=== PATIENT | female | born 1990 | race Two or more races ===

== ENCOUNTER 2019-03-13 13:52 | Emergency (ER) | payer MEDICAID ==
[~2019-03-13] VITALS: Ht 160 cm; Wt 109.8 kg
[2019-03-13 15:58] VITALS: BP 144/87
== END 2019-03-13 16:59 | disposition home or self-care (01) ==
LOC: ER 13:52
DX: R51 Headache (principal); E23.6 Other disorders of pituitary gland
CPT/HCPCS: 70450

== ENCOUNTER 2020-04-02 22:08 | Emergency (ER) | payer MEDICAID ==
[~2020-04-02] VITALS: Ht 160 cm; Wt 108.0 kg
[2020-04-02 22:19] VITALS: BP 147/86
[2020-04-02 23:15] LABS: Basophils # (auto) 0 10 ^3/uL (0-0.2); Basophils % (auto) 0.4 % (0.0-2.0); Eosinophils # (auto) 0.1 10 ^3/uL (0-0.8); Eosinophils % (auto) 1.1 % (0.0-7.0); Hematocrit 43.2 % (36.0-46.0); Hemoglobin 14.1 g/dL (12.2-16.2); Lymphocytes # (auto) 2.3 10 ^3/uL (0.4-5.4); Lymphocytes % (auto) 25.6 % (10.0-50.0); Mean Corpuscular Hemoglobin 30.6 pg (28.0-32.0); Mean Corpuscular Hgb Conc. 32.6 g/dL (32.0-36.0); Mean Corpuscular Volume 93.8 fL (80.0-100.0); Monocytes # (auto) 0.6 10 ^3/uL (0-1.3); Monocytes % (auto) 6.2 % (0.0-12.0); Neutrophils # (auto) 6.1 10 ^3/uL (1.6-8.6); Neutrophils % (auto) 66.7 % (37.0-80.0); Platelet Count (auto) 206 10^3/uL (140-450); White Blood Cell 9.1 10^3/uL (4.4-10.8)
[2020-04-02 23:22] LABS: Urine Bacteria FEW /hpf (None Seen); Urine Blood Negative /uL (Negative); Urine Specific Gravity 1.025 (1.001-1.035); Urine WBC 9 /hpf (0 - 5)
[2020-04-02 23:41] LABS: Alanine Aminotransferase 24 U/L (13-56); Albumin 3.6 g/dL (3.4-5.0); Anion Gap 6 (5-15); Aspartate Aminotransferase 15 U/L (15-37); BUN/Creatinine Ratio 25.4; Blood Urea Nitrogen 17 mg/dL (7-18); Calcium 8.7 mg/dL (8.5-10.1); Carbon Dioxide 27 mmol/L (21-32); Chloride 106 mmol/L (98-107); GFR African American 131 mL/min; GFR Non-African American 108 mL/min; Glucose 107 mg/dL (74-106); Potassium 3.9 mmol/L (3.5-5.1); Sodium 139 mmol/L (136-145)
[2020-04-02 23:45] LABS: Alkaline Phosphatase 102 U/L (45-117); Bilirubin, Total 0.2 mg/dL (0.2-1.0); Total Protein 7.8 g/dL (6.4-8.2)
== END 2020-04-03 | disposition left against medical advice (07) ==
LOC: ER 22:13
DX: R42 Dizziness and giddiness (principal); Z53.21 Procedure and treatment not carried out due to patient leaving prior to being seen by health care provider
CPT/HCPCS: 36415; 80053; 81001; 81025; 84484; 85025; 93005

== ENCOUNTER → 2024-04-10 | Outpatient (CLI) | payer MEDICAID | END | disposition home or self-care (01) | LOC: LAB 12:12 | PROVIDERS: ATTEND Obstetrics & Gynecology | DX: Z34.80 Encounter for supervision of other normal pregnancy, unspecified trimester (principal); Z3A.00 Weeks of gestation of pregnancy not specified | CPT/HCPCS: 36415; 84144; 84702 ==

== ENCOUNTER → 2024-04-24 | Outpatient (CLI) | payer MEDICAID ==
[2024-04-24 13:04] LABS: Basophils # (auto) 0 10 ^3/uL (0-0.2); Basophils % (auto) 0.5 % (0.0-2.0); Eosinophils # (auto) 0.1 10 ^3/uL (0-0.8); Hematocrit 42.8 % (36.0-46.0); Hemoglobin 14.8 g/dL (12.2-16.2); Lymphocytes # (auto) 2.4 10 ^3/uL (0.4-5.4); Lymphocytes % (auto) 27.1 % (10.0-50.0); Mean Corpuscular Hemoglobin 31.8 pg (28.0-32.0); Mean Corpuscular Hgb Conc. 34.5 g/dL (32.0-36.0); Mean Corpuscular Volume 92.3 fL (80.0-100.0); Monocytes # (auto) 0.3 10 ^3/uL (0-1.3); Monocytes % (auto) 3.7 % (0.0-12.0); Neutrophils % (auto) 67.7 % (37.0-80.0); Nucleated Red Blood Cells % 0.1 %; Platelet Count (auto) 192 10^3/uL (140-450); Red Blood Cells 4.64 10^6/uL (4.0-5.20); Red Cell Distribution Width 13.2 % (11.8-14.3); White Blood Cell 8.9 10^3/uL (4.4-10.8)
[2024-04-24 13:52] LABS: Amphetamine Screen, Urine Neg (NEGATIVE); Barbiturate Scree,Urine Neg (NEGATIVE); Benzodiazephine Screen, Urine Neg (NEGATIVE); Cannabinoid Screen, Urine Neg (NEGATIVE); Cocaine Screen, Urine Neg (NEGATIVE); Opiate Scree,Urine Neg (NEGATIVE); Phencyclidine Screen, Urine Neg (NEGATIVE)
[2024-04-25 08:07] LABS: RPR Non Reactive (Non Reactive)
[2024-04-26 08:06] LABS: Chlamydia Trachomatis, NAA Negative (Negative); Neisseria gonorrhoeae, NAA Negative (Negative)
[2024-04-26 12:07] LABS: QuantiFERON-TB Gold Plus Negative (Negative)
== END | disposition home or self-care (01) ==
LOC: LAB 12:05
PROVIDERS: ATTEND Obstetrics & Gynecology
DX: Z11.3 Encounter for screening for infections with a predominantly sexual mode of transmission (principal); Z72.51 High risk heterosexual behavior
CPT/HCPCS: 36415; 80307; 83036; 84144; 84702; 85025; 86592; 86703; 86762; 86850; 86900; 86901; 87086; 87340

== ENCOUNTER → 2024-10-04 | Day surgery (SDC) | payer MEDICAID ==
--- NOTE | 2024-10-01 09:18 | DVHHP ---
ADMIT DATE: 10/04/2024 CHIEF COMPLAINT: Desires bilateral tubal ligation. HISTORY OF PRESENT ILLNESS: The patient is a 34-year-old 6, para 3, 0, 3, 3, admitted for laparoscopic placement of Filshie clips. The patient requested having tubal ligation. Risks, complication, failure rate, use of Filshie clips discussed with the patient, possibility of exploratory laparotomy, injury to bowel, surrounding organs discussed with the patient, failure rate with procedure discussed with the patient. The patient fully understands. She wishes to proceed with planned procedure. PAST MEDICAL HISTORY: Diabetes. PAST SURGICAL HISTORY: None. SOCIAL HISTORY: None. FAMILY HISTORY: None. OBSTETRIC AND GYNECOLOGIC HISTORY: Three normal vaginal deliveries, three miscarriages. REVIEW OF SYSTEMS: Consistent with HPI. PHYSICAL EXAMINATION: VITAL SIGNS: Stable, afebrile. HEENT: Within normal limits. CARDIOVASCULAR: Regular rate and rhythm. LUNGS: Clear to auscultation. BREASTS: Symmetrical. No masses. ABDOMEN: Obese, nontender. PELVIC: External genitalia within normal limits. Vagina normal. Cervix grossly normal. Uterus 7 weeks size and adnexa nonpalpable. EXTREMITIES: No clubbing, cyanosis or edema. IMPRESSION: * Multiparity, desires tubal sterilization. * Morbid obesity. * Diabetes. * Multiparity, desires tubal sterilization. PLAN: Laparoscopic placement of Filshie clips. Informed consent obtained. Risks, complication of surgery including infection, bleeding, hematoma formation, injury to bowel, bladder, surrounding organs, possibility of DVT, pulmonary embolism, risk of anesthesia discussed with the patient. Options reviewed. All questions answered. The patient fully understands. Failure rate with the procedure discussed with the patient. Possibility of exploratory laparotomy, blood transfusion, injury to organs discussed with the patient. The patient fully understands. She wishes to proceed with planned procedure. DO JESSICA Chamberlain TID: [id number] RECEIPT: [id number]
[2024-10-02 11:40] LABS: Urine Bacteria None Seen /hpf (None Seen)
[2024-10-02 12:18] LABS: Basophils # (auto) 0 10 ^3/uL (0-0.2); Basophils % (auto) 0.6 % (0.0-2.0); Eosinophils # (auto) 0.1 10 ^3/uL (0-0.8); Eosinophils % (auto) 1.4 % (0.0-7.0); Lymphocytes # (auto) 2.2 10 ^3/uL (0.4-5.4); Lymphocytes % (auto) 28.6 % (10.0-50.0); Mean Corpuscular Hemoglobin 31.1 pg (28.0-32.0); Mean Corpuscular Volume 91.5 fL (80.0-100.0); Monocytes # (auto) 0.3 10 ^3/uL (0-1.3); Monocytes % (auto) 4.1 % (0.0-12.0); Neutrophils # (auto) 5.1 10 ^3/uL (1.6-8.6); Neutrophils % (auto) 65.3 % (37.0-80.0); Nucleated Red Blood Cells % 0.1 %; Platelet Count (auto) 207 10^3/uL (140-450); Red Blood Cells 4.81 10^6/uL (4.0-5.20); Red Cell Distribution Width 13.3 % (11.8-14.3); White Blood Cell 7.8 10^3/uL (4.4-10.8)
[2024-10-02 12:32] LABS: Partial Thromboplastin Time 26.4 SEC (24.5-34.5); Prothrombin Time 10.6 sec (9.3-11.8)
[2024-10-02 12:35] LABS: Urine Blood Negative /uL (Negative); Urine Clarity Turbid (Clear); Urine Color Light-Yellow (Yellow); Urine Protein, UAD Negative (Negative); Urine Specific Gravity 1.019 (1.001-1.035); Urine Squamous Epithelial Cell MOD /hpf (<5); Urine Urobilinogen Normal (Negative); Urine WBC 12 /HPF (0-5); Urine pH 5.5 (5.0-9.0)
[2024-10-02 12:56] LABS: Alanine Aminotransferase 29 U/L (7-40); Albumin 4.3 g/dL (3.2-4.8); Alkaline Phosphatase 89 U/L (46-116); Anion Gap 8 (5-15); Aspartate Aminotransferase 25 U/L (13-40); Blood Urea Nitrogen 9 mg/dL (9-23); Calcium 9.5 mg/dL (8.7-10.4); Carbon Dioxide 26 mmol/L (20-31); Chloride 103 mmol/L (98-107); Sodium 137 mmol/L (136-145)
[2024-10-02 12:57] LABS: Bilirubin, Total 0.6 mg/dL (0.2-1.0); Total Protein 7.1 g/dL (5.7-8.2)
[2024-10-02 13:01] LABS: Glucose 213 mg/dL (74-106)
[~2024-10-04] VITALS: Ht 160 cm; Wt 105.2 kg
[~2024-10-04] MED LIST: ACETAMINOPHEN IV 1000 MG/100ML (10MG/ML) IV PRN; DULA1INJ SC; DexAMETHasone SOD PHOS 10MG/1ML VIAL INJ ONE; HYDR-4072 PO; IBUP-1456 PO; MEPERIDINE HCL (25 MG/ML) 1ML VIAL IV PRN; MEPERIDINE HCL (25 MG/ML) 1ML VIAL ONE; METF-370 PO; ONDANSETRON HCL 4 MG/2 ML VIAL IV ONE; ONDANSETRON HCL 4 MG/2 ML VIAL IV PRN; ONDANSETRON HCL 4 MG/2 ML VIAL ONE; PHENYLEPHRINE HCL 10 MG/ML VL ONE; PROPOFOL 10 MG/ML 20 ML IV ONE; ROCURONIUM 10MG/ML 10ML VIAL IV ONE; SUCCINYLCHOLINE CHLORIDE 20 MG/ML 10ML VIAL IV ONE; SUGAMMADEX 200mg/2ml Vial (100MG/ML) IV ONE; ZOFR4T PO; ceFAZolin 2 GM/D5W100ml 100 ML IV ONE; fentaNYL CITRATE 100 MCG/2 ML VL ONE
[2024-10-04] MEDS: LIDOCAINE W/ EPINEPHRINE 1% 20ML VIAL ONE (07:51)
[2024-10-04] MEDS: BUPIVACAINE 0.5% MPF INJ 30ML SDV IJ ONE (07:51)
[2024-10-04 08:05] VITALS: PULSE 84; RESP 14
[2024-10-04] MEDS: HYDROmorphone HCL 2 MG/ML VL/or syr IV PRN (08:20)
[2024-10-04 09:15] VITALS: BP 106/62; PULSE 72; RESP 13; O2SAT 98
--- NOTE | 2024-10-04 11:11 | DVHOP2 ---
Operative Report DATE OF OPERATION: 10/04/24 PREOPERATIVE DIAGNOSES: 1. Desires elective tubal sterilization. 2. morbid obesity POSTOPERATIVE DIAGNOSES: 1. Desires elective tubal sterilization. 2. same SURGEON: Emily Herrera D.O./zac ANESTHESIOLOGIST: ava TYPE OF ANESTHESIA : General. CONSENT: The patient was informed of the risks and benefits of the procedure. The patient was informed of the risks and benefits of the procedure. These include but are not limited to , complications of anesthesia, postoperative infection, incomplete relief of symptoms, recurrence of symptoms, damage to blood vessels, nerves and tendons, deep venous thrombosis, pulmonary embolism and possible need for repeat surgery in the future. FINDINGS: Cervix is grossly normal appearing. Uterus is 10 weeks' size. Adnexa nonpalpable. COMPLICATIONS: None. BLOOD PRODUCTS USED: None. PROCEDURES: Laparoscopic placement of Filschi Clips to bilateral tubes PROCEDURE IN DETAIL: The patient was taken to the operating room where she was placed under general anesthesia. The patient was then prepped and draped in the usual sterile manner in the dorsal lithotomy position. The bladder was emptied using a straight catheter. Examination under anesthesia revealed the above findings. A weighted speculum was placed in the vagina. The anterior lip of the cervix was grasped using single-tooth tenaculum. Cervix was dilated. Uterus sounded to 10 cm. HUMI catheter was placed. Attention was then turned to the abdomen where a Veress needle was introduced. Abdomen was distended with 3L of CO2 gas. Using Visiport, abdomen was entered under direct visualization. Survey of abdominal cavity revealed normal finding. A 8 mm trocar was placed into the suprapubic region. Filshie clip was then loaded on the right tube as well as the left. No bleeding was noted. All the instruments were removed from the abdomen and pelvis. CO2 gas released. Incisional ports were closed using #4-0 Vicryl and saul for the larger port. The patient tolerated the procedure well. All instruments were removed from the patient's cervix. The patient was taken to the recovery room in a stable condition. ESTIMATED BLOOD LOSS: 20 mL Visit Coding OBGYN Date of Service: Oct 04, 2024 Billing Provider: EMILY HERRERA DO GEOLOGIC TECHNICIAN Common Visit Codes: PROCEDURE ONLY GEOLOGIC TECHNICIAN Procedure Codes: 74346-NYLTN @ TIME OF EMILY HERRERAb 7, 2025 11:11
--- NOTE | 2024-10-04 17:00 | DVHDS2 ---
Physician Discharge Progress N Final Diagnosis: desires tubal ligation Condition on Discharge: Good Disposition: Home Discharge Instructions: Diet: Regular Activity: Light activity Follow Up/Referral: 1w Medications: kate craft Follow Up Care: Specialist: 1w Discharge Statement: "Patient was advised to return to the ER or call 911 if any headaches, dizziness, shortness of breath, chest pain, abdominal pain, bleeding, fevers, or worsening of medical condition. Patient was counseled about treatment plan, medications, possible side effects, patientverbalized understanding. All questions were answered to the best of my ability. This discharge took greater then 30 minutes in planning, reviewing documentation, counseling the patient, and discussing with other team members." Visit Coding OBGYN Date of Service: Oct 04, 2024 Billing Provider: KAT SANZ DO MAGNETIC RESONANCE IMAGING COORDINATOR Common Visit Codes: 61706-OCD/OBS SAME DATE (HIGH) MAGNETIC RESONANCE IMAGING COORDINATOR Procedure Codes: 04641-VPH.SURG:W/FULG OF OVIDUCTS KAT SANZ DO Oct 04, 2024 17:00
--- NOTE | 2024-10-04 17:03 | POSTOP ---
Post-Operative Note Post-Operative Note Preop Diagnosis desires tubal ligation ,morbid obesity Postop Diagnosis: desires tubal ligation Operation performed laparoscopic placement of filschie clips Specimen na Anesthesia: General Anesthesiologist: alysongyen Blood Loss(fluid mgmt) 20ml Surgeon Kat Herrera Information Technology Data Analyst zac Implant filschie clips Complications & Mgmt none Date 10/04/24 Time 17:01 Visit Coding OBGYN Date of Service: Oct 04, 2024 Billing Provider: KAT HERRERA DO EMAIL MARKETING MANAGER Common Visit Codes: 25152-OTR/OBS SAME DATE (HIGH) EMAIL MARKETING MANAGER Procedure Codes: 64541-UPD.SURG:W/FULG OF OVIDUCTS KAT HERRERA DO Oct 04, 2024 17:03
== END | disposition home or self-care (01) ==
LOC: SUR 06:16
PROVIDERS: ATTEND Obstetrics & Gynecology
DX: Z30.2 Encounter for sterilization (principal); E11.9 Type 2 diabetes mellitus without complications; E66.01 Morbid (severe) obesity due to excess calories; Z64.1 Problems related to multiparity; Z68.41 Body mass index [BMI] 40.0-44.9, adult; Z79.4 Long term (current) use of insulin
CPT/HCPCS: 36415; 58671; 80053; 81001; 82962; 84702; 85025; 85610; 85730; 86850; 86900; 86901; A4264; J0330; J1100; J1171; J2175; J2371; J2405; J2704; J3010; J3490